=== PATIENT | female | born 1960 | race African-American/Black ===

== ENCOUNTER 2019-06-01 05:34 | Day surgery (SDC) | payer OTHER ==
[2019-05-22 11:29] LABS: ABSOLUTE LYMPHOCYTES (AUTO) 2.4 10^3/uL (0.5-4.7); ABSOLUTE MONOCYTES (AUTO) 0.4 10^3/uL (0.1-1.4); ABSOLUTE NEUT (AUTO) 4.7 10^3/uL (1.7-8.2); BASOPHILS % (AUTO) 0.3 % (0-2); EOSINOPHILS % (AUTO) 0.6 % (0-6); HEMATOCRIT 44.3 % (36.0-47.0); HEMOGLOBIN 15.4 g/dL (12.0-15.5); LYMPHOCYTES % (AUTO) 31.9 % (13-45); MEAN CORPUSCULAR HGB CONC 34.8 g/dL (32.0-36.0); MEAN CORPUSCULAR VOLUME 89 fl (80-97); MONOCYTES % (AUTO) 4.9 % (3-13); PLATELET COUNT 256 10^3/uL (150-450); RED BLOOD COUNT 4.98 10^6/uL (3.72-5.28); RED CELL DISTRIBUTION WIDTH 13.5 % (11.5-14.0); SEGMENTED NEUTROPHILS % (AUTO) 62.3 % (42-78); TOTAL CELLS COUNTED % (AUTO) 100 %; WHITE BLOOD COUNT 7.5 10^3/uL (4.0-10.5)
[2019-05-22 11:58] LABS: ANION GAP 7 (5-19); BLOOD UREA NITROGEN 11 mg/dL (7-20); CALCIUM 9.5 mg/dL (8.4-10.2); CARBON DIOXIDE 32 mmol/L (22-30); CHLORIDE 103 mmol/L (98-107); GLUCOSE 109 mg/dL (75-110)
--- NOTE | 2019-05-22 12:44 | EKG REPORT ---
SEVERITY:- ABNORMAL ECG - SINUS RHYTHM BORDERLINE LEFT AXIS DEVIATION ABNORMAL T, CONSIDER ISCHEMIA, DIFFUSE LEADS : Confirmed by: Gail Montalvo MD 22-May-2019 12:44:02
[~2019-06-01 05:34] MED LIST: CEFAZOLIN SODIUM 2 GM in DEXTROSE 5%-WATER 100 ML IV PRN; GLYCOPYRROLATE 1 MG/5 ML VIAL ONE; LACTATED RINGERS 1000 ML IV PRN; LIDOCAINE 0.5% INJ-PF (5 MG/ML) 50 ML SDV SUBCUT PRN; NEOSTIGMINE METHYLSULFATE 10 MG/10 ML VIAL ONE; SUCCINYLCHOLINE CHLORIDE INJ 200 MG/10 ML VIAL ONE; VECURONIUM BROMIDE INJ 10 MG VIAL IV ONE
[2019-06-01] MEDS ORDERED: EPHEDRINE SULFATE INJ 50 MG/1 ML AMPULE ONE (06:55)
[2019-06-01] MEDS ORDERED: ONDANSETRON HCL INJ/PF 4 MG/2 ML SDV ONE (06:55)
[2019-06-01] MEDS ORDERED: MIDAZOLAM 2 MG/2 ML INJ ONE (06:55)
[2019-06-01] MEDS ORDERED: FENTANYL CITRATE INJ/PF 100 MCG/2 ML AMPUL ONE ×2 (06:55→09:07)
[2019-06-01] MEDS ORDERED: DEXAMETHASONE SOD PHOSPHATE INJ 4 MG/1 ML VIAL ONE (06:55)
[2019-06-01] MEDS ORDERED: KETOROLAC TROMETHAMINE 60 MG/2 ML SDV ONE (06:55)
[2019-06-01] MEDS ORDERED: MORPHINE SULFATE 10 MG/ML INJ ONE (06:56)
[2019-06-01] MEDS ORDERED: PROPOFOL INJ 200 MG/20 ML VIAL IV ONE (06:56)
[2019-06-01] MEDS ORDERED: BUPIVACAINE INJ/PF LIPOSOME/PF 266 MG/20 ML SDV ONE (07:13)
[2019-06-01] MEDS ORDERED: ONDANSETRON HCL INJ/PF 4 MG/2 ML SDV IV PRN (08:01)
[2019-06-01] MEDS ORDERED: MEPERIDINE HCL/PF INJ 25 MG/1 ML DISP.SYRIN IV PRN (08:01)
[2019-06-01] MEDS ORDERED: OXYCODONE-ACETAMINOPHEN 5-325 MG TABLET PO PRN ×2 (08:01)
[2019-06-01] MEDS ORDERED: DIPHENHYDRAMINE HCL 50 MG/ML VIAL IV PRN (08:01)
[2019-06-01] MEDS ORDERED: MORPHINE SULFATE 10 MG/ML INJ IV PRN (08:01)
[2019-06-01] MEDS ORDERED: PROMETHAZINE HCL INJ 25 MG/1 ML VIAL IV PRN ×2 (08:01)
[2019-06-01] MEDS ORDERED: FENTANYL CITRATE INJ/PF 100 MCG/2 ML AMPUL IV PRN ×3 (08:01)
--- NOTE | 2019-06-01 08:54 | Discharge Summary ---
Discharge Summary (SDC) - Discharge Final Diagnosis: incisional hernia Date of Surgery: 06/01/19 Discharge Date: 06/01/19 Condition: Good [facility]errals: [facility] - Discharge Diet: As Tolerated Discharge Activity: No Lifting Over 10 Pounds Report the Following to Your Physician Immediately: Nausea, Vomiting, Fever over 101 Degrees - pt needs a f/u in surgery clinic i n10-14 days.
--- NOTE | 2019-06-01 08:59 | Operative Report ---
Nonrecallable Operative Report DATE OF SURGERY: 06/01/19 PREOPERATIVE DIAGNOSIS: incisional hernia POSTOPERATIVE DIAGNOSIS: incisional hernia OPERATION: laparoscopic repair of incisional hernia SURGEON: GABINO BERNARDO ANESTHESIA: GA TISSUE REMOVED OR ALTERED: none COMPLICATIONS: none ESTIMATED BLOOD LOSS: 5cc INTRAOPERATIVE FINDINGS: see note PROCEDURE: Patient was brought to the operating awake alert stable condition placed the operative table supine position induced under general anesthesia intubated. After appropriate timeout and site verification the abdomen was prepped and draped in usual sterile fashion. A varies needle was placed into the abdominal cavity at Garibay's point and the abdomen was insufflated with 6 L of CO2 gas. At that same point a 5 mm port was then placed in the abdominal cavity intra- abdominal visualization revealed no evidence of Veress needle or trocar injury. Immediately we noted that there was a previous ventral hernia repair with done with mesh that was fixed in place anteriorly with Surgidac inessa. Examination of the anterior abdominal wall revealed that that mesh was covering a previous lower abdominal hernia however just above the mesh and bordering it there was a ventral hernia that was approximately 2 cm in diameter. We placed a 5 mm port through the left lower quadrant and an epigastric 5 mm port for the camera. I used a 4 cm piece of ventral light mesh. Please sit up against the anterior abdominal wall over lying the 2 cm defect and fixed it in place with absorber tacks. Circumferentially placed the absorber tacks for good fixation of the mesh to the anterior abdominal wall completely covering the the ventral hernia defect. It was just underneath the umbilicus. Then we remove the 10 mm port in the left lower quadrant and closed that defect with 2 sutures of 0 Vicryl using the suture passer. There were 2 or 3 small adhesions of omentum to the anterior abdominal wall which were also taken down with Bovie cautery. Small bowel appeared to be free away from any kind of incarceration or significant adhesions. We reduce the pneumoperitoneum and closed with 3 skin defects with intracuticular 4-0 Biosyn Steri-Strips completed the procedure estimated blood loss was less than 5 cc sponge needle counts correct x2 the patient was then transferred recovery in stable condition
[2019-06-01] MEDS ORDERED: ALBUTEROL SULFATE 0.083% NEB 2.5 MG/3 ML AMPUL NEB ONE (10:05)
[2019-06-01 12:53] VITALS: BP 150/90
== END 2019-06-01 12:45 | disposition home or self-care (01) ==
LOC: OROUT 05:34
PROVIDERS: ATTEND Surgery
DX: K43.2 Incisional hernia without obstruction or gangrene (principal); I10 Essential (primary) hypertension; Z86.19 Personal history of other infectious and parasitic diseases; F17.210 Nicotine dependence, cigarettes, uncomplicated; Z79.899 Other long term (current) drug therapy; E11.9 Type 2 diabetes mellitus without complications; E66.9 Obesity, unspecified; Z68.42 Body mass index [BMI] 45.0-49.9, adult
CPT/HCPCS: 93005; 36415; 82962; 85025; 80048; 93010; 00832; 49654; C1781 ×2; C1713; J2250; J0690; J1100; J1885; J3490 ×2; J2270; J2710; J0330; J2405; J7060; J2704; C9290; 832; J3010